=== PATIENT | male | born 1990 | race Caucasian/White ===

== ENCOUNTER 2016-10-25 21:37 | Observation (INO) | payer OTHER ==
--- NOTE | ~2016-10-25 | OP ---
Record Of Operation [facility] [address] [place]. [address] NAME: MEDARDO LOJA : 89 STATUS : DIS Phuong PAT#: [id number] AGE: 26 ADM/REG DATE : 10/25/16 MR#: [id number] REPORT SERV DATE: 10/26/16 DICTATED BY: Madi BUNN DATE: 10/26/16 REPORT STATUS : Draft TRANSCRIBED BY: NIKA DATE: 10/26/16 DATE OF PROCEDURE: 10/26/2016 PREOPERATIVE DIAGNOSIS: Left ureteral stone. POSTOPERATIVE DIAGNOSIS: Left mid ureteral stone. PROCEDURE: Left ESWL, anterior approach. SURGEON: Madi Bunn M.D. ANESTHESIA: MAC. COMPLICATIONS: None. DRAINS: None. BRIEF HISTORY: Mr. Loja is a 26-year-old white male, seen yesterday with a 6 mm proximal stone. He was scheduled for ESWL later in the week but had to be admitted to the hospital for intractable pain. This pain became controlled but we could no longer see the stone. It was moved to over the sacrum. We found an opening for today and decided to proceed with ESWL today. The risks of bleeding, infection, anesthesia, need for retreatment, endoscopy, etc. were discussed. There are no unanswered questions. DESCRIPTION OF PROCEDURE: The patient was placed supine on the Dornier Delta II lithotripsy machine. The socket was placed anterior and the stone was localized over the mid to distal sacrum. Total of 3000 shocks at a power level up to 6.0 were delivered to the stone. The patient tolerated the procedure well. He will be taken to the recovery with ultimate plans for discharge with the following instructions: DISCHARGE INSTRUCTIONS: 1. Home today. 2. Strain all urine. 3. Pain medicine and tamsulosin as prescribed yesterday. 4. Call for intractable pain or fever greater than 101, otherwise, follow up in office in one-to-two weeks with a KUB. JULY/NIKA Madi Bunn M.D. / [id number] Record Of Operation [place] [id number] [facility] [place] [address] NAME: MEDARDO LOJA : [birth year] STATUS : DIS Phuong PAT#: [id number] AGE: 26 ADM/REG DATE : 10/25/16 MR#: [id number] REPORT SERV DATE: 10/26/16 DICTATED BY: Madi BUNN DATE: 10/26/16 REPORT STATUS : Draft TRANSCRIBED BY: NIKA DATE: 10/26/16 CC: Jaren High Jr., M.D.
[2016-10-25 20:26] LABS: BASOPHILS 0.2 %; BASOPHILS ABSOLUTE 0.04 10/3/uL (0.0-0.16); EOSINOPHILS 0.2 %; EOSINOPHILS ABSOLUTE 0.03 10/3/uL (0.0-0.53); ER CBC TAT 0 Hrs 09 Mins; HEMATOCRIT 50.4 % (40.0-51.0); HEMOGLOBIN 18.1 g/dL (13.6-17.8); IMMATURE GRANULOCYTES 0.3 %; IMMATURE GRANULOCYTES ABSOLUTE 0.05 10/3/uL (0.0-0.11); LYMPHOCYTES 5.9 %; LYMPHOCYTES ABSOLUTE 1.07 10/3/uL (0.67-4.30); MANUAL DIFF NO %; MEAN CORPUS HGB CONC 35.9 g/dL (32.0-36.0); MEAN CORPUSCULAR HEMOGLOB 30.7 pg (26.0-34.0); MEAN CORPUSCULAR VOLUME 85.4 fL (80-100); MEAN PLATELET VOLUME 10.7 fL (9.2-13.0); MONOCYTES 3.5 %; MONOCYTES ABSOLUTE 0.63 10/3/uL (0.21-1.20); NEUTROPHILS 89.9 %; NEUTROPHILS ABSOLUTE 16.22 10/3/uL (2.02-8.40); PLATELET COUNT 254 10/3/uL (150-400); RBC DISTRIBUTION WIDTH 11.8 % (12.0-16.0)
[2016-10-25 20:39] LABS: BUN (BLOOD UREA NITROGEN) 14 MG/DL (6-23); CHLORIDE, SERUM 105 MMOL/L (96-112); CO2 (CARBON DIOXIDE) 28 MMOL/L (24-34); CREATININE 0.96 MG/DL (0.70-1.30); GFR AFRICAN AMERICAN 127 ML/MIN (>=60); GFR NON AFRICAN AMERICAN 109 ML/MIN (>=60); GLUCOSE, SERUM 116 MG/DL (60-99); POTASSIUM, SERUM 4.1 MMOL/L (3.5-5.3); SODIUM, SERUM 139 MMOL/L (135-148)
[2016-10-25 20:41] LABS: CALCIUM, SERUM 10.6 MG/DL (8.5-10.4)
[2016-10-25 21:09] LABS: ASCORBIC ACID (UR NOT ORDER) NEG (NEG); BILIRUBIN, URINE NEGATIVE (NEG); ER URINALYSIS TAT 0 Hrs 10 Mins; KETONE, URINE 20 MG/DL (NEG); LEUKOCYTE ESTERASE(NOT OR NEG (NEG); NITRITE (URINE) NEG (NEG); WBC (NOT ORDERED) (RFLEX) 7 (0-5)
[2016-10-26 04:59] LABS: BASOPHILS 0.5 %; BASOPHILS ABSOLUTE 0.05 10/3/uL (0.0-0.16); EOSINOPHILS 1.4 %; EOSINOPHILS ABSOLUTE 0.16 10/3/uL (0.0-0.53); HEMATOCRIT 44.3 % (40.0-51.0); HEMOGLOBIN 15.7 g/dL (13.6-17.8); IMMATURE GRANULOCYTES 0.2 %; IMMATURE GRANULOCYTES ABSOLUTE 0.02 10/3/uL (0.0-0.11); LYMPHOCYTES 24.9 %; LYMPHOCYTES ABSOLUTE 2.76 10/3/uL (0.67-4.30); MEAN CORPUS HGB CONC 35.4 g/dL (32.0-36.0); MEAN CORPUSCULAR HEMOGLOB 30.7 pg (26.0-34.0); MEAN CORPUSCULAR VOLUME 86.7 fL (80-100); MEAN PLATELET VOLUME 11.1 fL (9.2-13.0); NEUTROPHILS ABSOLUTE 7.11 10/3/uL (2.02-8.40); PLATELET COUNT 228 10/3/uL (150-400); RBC DISTRIBUTION WIDTH 11.9 % (12.0-16.0); RED CELL COUNT 5.11 10/6/uL (4.7-6.1); WHITE BLOOD CELLS 11.1 10/3/uL (4.5-10.5)
[2016-10-26 05:00] LABS: MANUAL DIFF NO %
[2016-10-26 05:08] LABS: BUN (BLOOD UREA NITROGEN) 13 MG/DL (6-23); CHLORIDE, SERUM 106 MMOL/L (96-112); CO2 (CARBON DIOXIDE) 25 MMOL/L (24-34); CREATININE 0.75 MG/DL (0.70-1.30); GFR AFRICAN AMERICAN 148 ML/MIN (>=60); GFR NON AFRICAN AMERICAN 127 ML/MIN (>=60); GLUCOSE, SERUM 108 MG/DL (60-99); POTASSIUM, SERUM 3.7 MMOL/L (3.5-5.3); SODIUM, SERUM 141 MMOL/L (135-148)
[2016-10-26 05:09] LABS: CALCIUM, SERUM 9.6 MG/DL (8.5-10.4)
[2016-10-26 11:03] LABS: INTERNATIONAL NORMAL RATI 1.1 UNITS (-)
[2016-10-26 11:05] LABS: ALBUMIN 4.4 G/DL (3.5-5.0); DIRECT BILIRUBIN 0.2 MG/DL (0.0-0.4); INDIRECT BILIRUBIN(NOT ORDER) 0.7 MG/DL (0.1-0.9); TOTAL BILIRUBIN 0.9 MG/DL (0-1.2); TOTAL PROTEIN 7.7 G/DL (6.0-8.5)
== END 2016-10-26 17:10 | disposition home or self-care (01) ==
LOC: 1SO 21:37
PROVIDERS: Emergency Medicine; Urology
PROC: 0TF7XZZ Fragmentation in Left Ureter, External Approach (ICD-10-PCS; principal; 2016-10-25)
DX: N20.1 Calculus of ureter (principal)
CPT/HCPCS: 50590; 74000; 80048; 80076; 81001; 85025; 85610; 96374; A9270-GY; G0378; J2250; J2405; J3010